=== PATIENT | male | born 1975 | race Caucasian/White ===

== ENCOUNTER → 2017-01-14 | Outpatient (CLI) | payer OTHER ==
--- NOTE | 2017-01-14 15:41 | KCIC ---
MR LUMBAR SPINE Indication: Low back pain for several years. Left leg nerve damage. Multiple falls. COMPARISON: None Technique: Sagittal T2, sagittal STIR, and sagittal T1-weighted images were obtained. Additional axial T1 and T2 weighted imaging was also performed. FINDINGS: Alignment and curvature are within normal limits. There is no compression fracture or deformity. Disc space heights are well-maintained. The conus terminates normally at the level of L1. Visualized intra-abdominal contents are within normal limits. At L5-S1 there is a small disc bulge which causes moderate left and mild right foraminal stenosis. Correlate for left greater than right L5 radiculopathy. The remaining intervertebral disc levels are well maintained. IMPRESSION: Small disc bulge at L5-S1 that extends into the bilateral foramen resulting in moderate left and mild right foraminal stenosis. Correlate for left greater than right L5 radiculopathy. Electronically signed by: Hadley Fields MD (01/14/2017 3:38 PM)
== END | disposition home or self-care (01) ==
LOC: KCIC MRI 13:44
PROVIDERS: ATTEND Physical Medicine & Rehabilitation
DX: M51.36 Other intervertebral disc degeneration, lumbar region (principal); R29.6 Repeated falls
CPT/HCPCS: 72148